=== PATIENT | male | born 1995 | race Two or more races ===

== ENCOUNTER 2020-04-21 13:26 | Emergency (ER) | payer OTHER ==
[~2020-04-21] VITALS: Ht 180.3 cm; Wt 106.3 kg
[2020-04-21 14:15] LABS: BASOPHILS # (AUTO) 0.02 x10^3/uL (0-0.1); BASOPHILS % (AUTO) 0 % (0-1); EOSINOPHILS # (AUTO) 0.04 x10^3/uL (0-0.4); EOSINOPHILS % (AUTO) 1 % (1-7); LYMPHOCYTES # (AUTO) 0.97 x10^3/uL (1-3.4); LYMPHOCYTES % (AUTO) 21 % (22-44); MD NO; MEAN CORPUSCULAR HEMOGLOBIN 31.2 pg (27.5-34.5); MEAN CORPUSCULAR HGB CONC 33.5 g/dL (33.2-36.2); MEAN CORPUSCULAR VOLUME 93.2 fL (81-97); MEAN PLATELET VOLUME 8.1 fL (7.4-10.4); MONOCYTES # (AUTO) 0.59 x10^3/uL (0.2-0.8); MONOCYTES % (AUTO) 13 % (2-9); NEUTROPHILS % (AUTO) 66 % (42-75); PLATELET COUNT 170 x10^3/uL (130-400); RED BLOOD COUNT 5.38 x10^6/uL (4.38-5.82); RED CELL DISTRIBUTION WIDTH 12.1 % (9.4-14.8)
[2020-04-21 14:25] LABS: ALANINE AMINOTRANSFERASE 46 U/L (12-78); ALBUMIN 3.9 g/dL (3.4-5.0); ANION GAP 8 mmol/L (5-15); CALCIUM 8.6 mg/dL (8.5-10.1); CHLORIDE 110 mmol/L (98-107); CREATININE 0.95 mg/dL (0.7-1.3)
[2020-04-21 14:28] LABS: ALKALINE PHOSPHATASE 88 U/L (45-117); BILIRUBIN,TOTAL 0.4 mg/dL (0.2-1.0); TOTAL PROTEIN 7.7 g/dL (6.4-8.2)
--- NOTE | 2020-04-21 15:08 | NUR ---
ROLLER PNEUMATIC: PT FROM LOBBY TO ROOM AT THIS TIME.
--- NOTE | 2020-04-21 15:38 | NUR ---
PT RESTING COMFORTABLY IN [facility] AT THIS TIME. TYLER. PT ATTACHED TO VS MONITORS. GAVINO CAI, AT FOR PT HISTORY AND ASSESSMENT.
[2020-04-21 16:52] LABS: MICROSCOPIC AUTO
--- NOTE | 2020-04-21 18:45 | NUR ---
REPORT OF PT TO JAMILAH SPANN AT THIS TIME. ALL QUESTIONS ANSWERED.
--- NOTE | 2020-04-21 19:00 | NUR ---
Pt resting quietly and comfortably, waiting for ct results. Pt voices no complaints at this time.
[2020-04-21 19:18] VITALS: BP 123/69
== END 2020-04-21 19:23 | disposition home or self-care (01) ==
LOC: ED 17:45
DX: K29.00 Acute gastritis without bleeding (principal); Z20.828 Contact with and (suspected) exposure to other viral communicable diseases; R31.29 Other microscopic hematuria; R10.31 Right lower quadrant pain; R10.11 Right upper quadrant pain; J06.9 Acute upper respiratory infection, unspecified; J45.909 Unspecified asthma, uncomplicated; F17.200 Nicotine dependence, unspecified, uncomplicated
CPT/HCPCS: 36415; 71045; 74176; 76700; 80053; 81001; 83690; 85025; 87635; 93005; 99285

== ENCOUNTER 2020-09-21 15:37 | Emergency (ER) | payer OTHER ==
[~2020-09-21] VITALS: Ht 180.3 cm; Wt 95.9 kg
--- NOTE | 2020-09-21 15:49 | NUR ---
PT IS VERBALLY AGGRESSIVE AND RIPPING OFF ALL MONITOR EQUIPMENT. STATES HE WANTS TO GO OUTSIDE AND SMOKE A CIGERETTE. SECURITY CALLED. SW AT BEDSIDE. PT PLACED ON HOLD AND PT RESTRAINED BY SECURITY IN 2 POINT LEATHER RESTRAINTS.
--- NOTE | 2020-09-21 15:55 | NUR ---
PT SO. [facility] [phone]
[2020-09-21] MEDS ORDERED: SODIUM CHLORIDE 0.9% 1,000ML IVBOLUS ONE (16:00)
[2020-09-21] MEDS ORDERED: SODIUM CHLORIDE FLUSH 10ML SYR IVF ONE (16:00)
[2020-09-21] MEDS ORDERED: ZIPRASIDONE 20 MG INJ IM ONE ×2 (16:17→16:30)
[2020-09-21 16:24] LABS: BASOPHILS % (AUTO) 1 % (0-1); EOSINOPHILS % (AUTO) 1 % (1-7); LYMPHOCYTES % (AUTO) 28 % (22-44); MEAN CORPUSCULAR HEMOGLOBIN 32.2 pg (27.5-34.5); MEAN CORPUSCULAR HGB CONC 35.1 g/dL (33.2-36.2); MEAN PLATELET VOLUME 7.6 fL (7.4-10.4); MONOCYTES % (AUTO) 5 % (2-9); NEUTROPHILS % (AUTO) 66 % (42-75); PLATELET COUNT 265 x10^3/uL (130-400); RED CELL DISTRIBUTION WIDTH 12.8 % (9.4-14.8)
[2020-09-21 16:25] LABS: MD NO
--- NOTE | 2020-09-21 16:25 | NUR ---
BREAK RN: PT YELLING AT STAFF ("GET THE FUCK AWAY! I WANT ANOTHER DOCTOR! YOU FUCKING BITCH! I WANT TO COMMIT SUICIDE, PLEASE! GET THIS MASK OFF ME! YOU'RE INFRINGING ON MY 2ND AMENDMENT RIGHT!") & PULLING AT RESTRAINTS, DR MABRY NOTIFIED, PT MEDICATED PER EMAR WITH ASSIST FROM SECURITY, PT OFFERED BSU MULTIPLE TIMES BUT REFUSED TO VOID. ALEXA ARRIVED AT BS.
[2020-09-21 16:33] LABS: ALBUMIN 4.1 g/dL (3.4-5.0); CHLORIDE 111 mmol/L (98-107)
[2020-09-21 16:49] LABS: ALKALINE PHOSPHATASE 85 U/L (45-117); ANION GAP 9 mmol/L (5-15); BILIRUBIN,TOTAL 0.3 mg/dL (0.2-1.0); CALCIUM 8.9 mg/dL (8.5-10.1); TOTAL PROTEIN 7.8 g/dL (6.4-8.2)
[2020-09-21 16:56] LABS: ALANINE AMINOTRANSFERASE 32 U/L (12-78); CREATININE 1.02 mg/dL (0.7-1.3)
[2020-09-21 16:57] LABS: SALICYLATE LEVEL < 1.7 mg/dL (2.8-20.0)
[2020-09-21] MEDS ORDERED: LORazepam 2 MG/ML, 1ML IM PRN (17:30)
[2020-09-21] MEDS ORDERED: LORazepam 2 MG/ML, 1ML ONE (17:31)
--- NOTE | 2020-09-21 17:42 | NUR ---
PT MOVED TO RM 1. JAMILAH CHARLES TO ASSUME CARE. PT IS SLEEPING QUITE SOUNDLY. SECURITY CALLED TO REMOVE RESTRAINT'S.
--- NOTE | 2020-09-21 18:54 | NUR ---
BEDSIDE REPORT FROM ARACELI RN, PT RESTING ON GURNEY NADN, FLUIDS INFUSING WITHOUT DIFFICULTY, O2 SAT 98% ON 2LNC
[2020-09-21 20:16] VITALS: BP 120/52
--- NOTE | 2020-09-21 20:16 | NUR ---
pt resting on left side on gurney, nad, appears comfortable, eyes closed, even and unlabored respirations, si precautions in place, sitter in line of sight, wctm.
--- NOTE | 2020-09-21 20:27 | NUR ---
HR BRIEFLY INCREASED WHILE PT AGGITATED AND THRASHING IN GURNEY. NOW BACK DOWN TO 80S. WCTM.
--- NOTE | 2020-09-21 21:29 | NUR ---
PT RESTING ON GURNEY SITTER IN VIEW, PT STILL TOO DROWSY FOR BREATHALYZER AT THIS TIME
--- NOTE | 2020-09-21 22:18 | NUR ---
CONDOM CATH APPLIED PER DR MABRY REQUEST, AWAITING URINE AT THIS TIME, PT RESTING ON GURNEY NADN, AROUSABLE TO LOUD VERBAL STIMULI. SITTER REMAINS IN RAOMS FOR SAFETY
--- NOTE | 2020-09-21 22:19 | NUR ---
TP RN: PER U SUP THIS PT. INSURANCE IS NOT ACCEPTED; ALSO THEY ARE FULL.
--- NOTE | 2020-09-21 22:42 | NUR ---
PT RESTING ON GURNEY, NAD, NO CHANGE IN CONDITION AT THIS TIME. SITTER IN LINE OF SIGHT, SI PRECAUTIONS IN PLACE, WCTM. AWAITING URINE SAMPLE
--- NOTE | 2020-09-22 01:16 | NUR ---
BREAK RN: PT UP TO USE PHONE. PT APPEARS CALM. PT BACK TO ROOM WITH NO NEEDS. PT IN VIEW OF SITTER.
--- NOTE | 2020-09-22 02:27 | NUR ---
BEDSIDE REPORT TO AKHIL ASKEW, PT CARE TRANSFERRED AT THIS TIME. WCRODOLFO.
--- NOTE | 2020-09-22 02:29 | NUR ---
[facility] LONG[facility] UNTIL PT IS MORE SOBER BUT WILL CALL BACK SHORTLY
--- NOTE | 2020-09-22 03:01 | NUR ---
MT: PSYCH PACKET SENT TO ALL PSYCH FACILITIES DUE TO PRIVATE INSURANCE.
--- NOTE | 2020-09-22 03:13 | NUR ---
REPORT TO [facility] AT THIS TIME WILL BE CALLING THEIR MD FOR ACCEPTANCE/ DENIAL. WILL CALL BACK WITH ANSWER
--- NOTE | 2020-09-22 03:33 | NUR ---
PT RESTING ON ALEXA CALABRESE IN VIEW NO NEEDS AT THIS TIME
--- NOTE | 2020-09-22 03:36 | NUR ---
MT: [facility] CALLED AND ACCEPTED PT FOR 07. ACCEPTING DOCTOR WILL BE DR. EVANS.
--- NOTE | 2020-09-22 04:33 | NUR ---
PT RESTING ON GURNEY, STILL AWAITING URINE SAMPLE PT EDUCATED ON NEED FOR SAMPLE AGAIN. PER [facility] PT ACCEPTED AND WILL GO AT 0700
--- NOTE | 2020-09-22 05:28 | NUR ---
PT RESTING ON ALEXA CALABRESE IN VIEW NO NEEDS AT THIS TIME
--- NOTE | 2020-09-22 06:12 | NUR ---
PT RESTING ON BHARATI LIU IN VIEW
== END 2020-09-22 07:26 ==
LOC: ED 19:55
DX: F32.3 Major depressive disorder, single episode, severe with psychotic features (principal); F10.121 Alcohol abuse with intoxication delirium; J45.909 Unspecified asthma, uncomplicated; F17.200 Nicotine dependence, unspecified, uncomplicated; Y90.0 Blood alcohol level of less than 20 mg/100 ml; Z91.14 Patient's other noncompliance with medication regimen
CPT/HCPCS: 36415; 80053; 80299; 80320; 80329; 85025; 96372; 99285; J2060; J3486; G0480

== ENCOUNTER 2021-04-23 17:41 | Emergency (ER) | payer OTHER ==
[~2021-04-23] VITALS: Ht 180.3 cm; Wt 109.2 kg
--- NOTE | 2021-04-23 18:44 | NUR ---
PT C/O LUQ ABD PAIN FOR 3 WEEKS NOT EXACERBATED BY EATING OR IMPROVED BY MEDICATIONS HE RECEIVED FROM [facility] ON 04/14, 04/15, 04/20/ OR 04/21 WHEN HE VISITED THE HOSPITAL. HE HAS APPOINTMENT WITH GI SCHEDULED FOR 05/10/21. HE DOES REPORT DAILY VOMITING ONCE PRE DAY FOR ABOUT A WEEK. LABS WERE DRAWN AND ABDOMINAL X-RAY REPORTED. REPORT TO HENRIQUE ASKEW.
[2021-04-23 18:45] LABS: BASOPHILS % (AUTO) 1 % (0-1); EOSINOPHILS % (AUTO) 2 % (1-7); LYMPHOCYTES % (AUTO) 32 % (22-44); MEAN CORPUSCULAR HEMOGLOBIN 31.9 pg (27.5-34.5); MEAN CORPUSCULAR HGB CONC 35.2 g/dL (33.2-36.2); MONOCYTES % (AUTO) 9 % (2-9); NEUTROPHILS % (AUTO) 57 % (42-75); PLATELET COUNT 209 x10^3/uL (130-400); RED BLOOD COUNT 4.76 x10^6/uL (4.38-5.82); RED CELL DISTRIBUTION WIDTH 12.5 % (9.4-14.8)
[2021-04-23 18:55] LABS: ALANINE AMINOTRANSFERASE 30 U/L (12-78); ALBUMIN 3.6 g/dL (3.4-5.0); CALCIUM 8.6 mg/dL (8.5-10.1); CHLORIDE 111 mmol/L (98-107); CREATININE 1.01 mg/dL (0.7-1.3)
[2021-04-23 18:57] LABS: ALKALINE PHOSPHATASE 85 U/L (45-117); BILIRUBIN,TOTAL 0.4 mg/dL (0.2-1.0); TOTAL PROTEIN 7.1 g/dL (6.4-8.2)
[2021-04-23 19:13] LABS: ANION GAP 3 mmol/L (5-15)
[2021-04-23 20:27] VITALS: BP 132/78
== END 2021-04-23 20:29 | disposition home or self-care (01) ==
LOC: ED 19:36
DX: K29.70 Gastritis, unspecified, without bleeding (principal); R10.12 Left upper quadrant pain; J45.909 Unspecified asthma, uncomplicated
CPT/HCPCS: 36415; 74018; 80053; 83690; 85025; 99284